=== PATIENT | male | born 1960 | race Two or more races ===

== ENCOUNTER 2016-12-14 11:58 | Day surgery (SDC) | payer BC ==
[~2016-12-14] VITALS: Ht 162.6 cm; Wt 105.0 kg
[2016-12-14] MEDS ORDERED: RAMIPRIL (12:30)
[2016-12-14] MEDS ORDERED: METOPROLOL (12:30)
[2016-12-14] MEDS ORDERED: AMLODIPINE (12:30)
[2016-12-14] MEDS ORDERED: ASPIRIN (12:30)
[2016-12-14] MEDS ORDERED: TRIAMTERENE (12:30)
[2016-12-14] MEDS ORDERED: PROPOFOL 20 ML ONE (14:19)
[2016-12-14 15:13] VITALS: BP 143/79; PULSE 55; RESP 22
--- NOTE | 2016-12-14 15:31 | OPPN ---
Date/Time of Note Date/Time of Note DATE: 12/14/16 TIME: 15:28 Proc Note GI Free Text/Dictation Procedure Date: 12/14/2016 Preoperative Diagnosis: Colorectal cancer screening Postoperative Diagnosis: Poor preparation precludes adequate examination Plan: Reschedule with 2 day prep, emphasize compliance with preparation Procedure Performed: Colonoscopy to splenic flexure Surgeon: Racheal Robles MD Chief Fishery Division: None Second Supervisor Microwave: None Anesthesia/Sedation MAC by anesthesiologist Tourniquet Time: NA Estimated Blood Loss: None Transfusion Required: No Specimens: None Grafts/Implants: None Tubes/Drains: NA Complications: None Pt. Condition Post Procedure: Stable Disposition: Home After informed consent, with the patient/relatives understanding the procedure, its indications and potential risks and complications, including but not limited to: Allergic reaction, bleeding, perforation, infection, and after all pertinent questions were answered to the patient's satisfaction, the patient/ relatives signed the witnessed informed consent. Following this, premedication was administered slowly IV push under careful cardiovascular and respiratory monitoring with pulse OXIMETRY, automatic blood pressure, and monitor technician. Once the sedative effect was achieved, the patient was placed in the left lateral decubitus position, digital rectal examination was performed. The colonoscope was then introduced and advanced under visual control throughout all segments of the colon including: the rectum, sigmoid, descending colon, splenic flexure preparation is extremely poor beyond this point. Careful examination of the mucosa utilizing a limited fashion of the lower gastrointestinal tract both on insertion as well as withdrawal of the instrument disclosed the following findings: PREPARATION QUALITY: Poor, inadequate examination RECTAL EXAM: The anorectal area was visualized examined and digital rectal examination performed with the following findings: No evidence of perirectal disease, no masses. COLONIC MUCOSA: The mucosa of all segments of the colon was carefully examined and showed the following findings: The preparation is extremely poor precluding adequate examination. Attempts at liver edge and advanced beyond the splenic flexure were made but the preparation worsen significantly as we advance instrument. The procedure was therefore terminated and the examination is considered inadequate. The instrument was then withdrawn, the patient tolerated the procedure well and was transferred out of the Endoscopy Suite awake and in good condition to continue recovery under observation. Procedure date: Dec 14, 2016 RACHEAL ROBLES MD Dec 14, 2016 15:31
[2016-12-14 16:00] VITALS: BP 136/91; PULSE 65; RESP 14
[2016-12-14 16:08] VITALS: BP 126/69; PULSE 60; RESP 14
== END 2016-12-14 16:29 | disposition home or self-care (01) ==
LOC: GIL 11:58
PROVIDERS: ATTEND Internal Medicine Gastroenterology
DX: Z12.11 Encounter for screening for malignant neoplasm of colon (principal); I10 Essential (primary) hypertension; E66.01 Morbid (severe) obesity due to excess calories; Z68.39 Body mass index [BMI] 39.0-39.9, adult
CPT/HCPCS: 45378; Z7610

== ENCOUNTER 2017-04-02 11:18 | Day surgery (SDC) | payer BC ==
[~2017-04-02] VITALS: Ht 162.6 cm; Wt 102.2 kg
[~2017-04-02 11:18] MED LIST: AMLODIPINE; ASPIRIN; METOPROLOL; RAMIPRIL; TRIAMTERENE
[2017-04-02 12:55] VITALS: Ht 162.6 cm; Wt 102.2 kg
[2017-04-02 13:33] VITALS: BP 148/89; PULSE 56; RESP 16
[2017-04-02] MEDS ORDERED: PROPOFOL 40 ML ONE (13:52)
[2017-04-02] MEDS ORDERED: LIDOCAINE 2% (SDV) 5 ML INJ ONE (13:52)
--- NOTE | 2017-04-02 15:26 | OPPN ---
Date/Time of Note Date/Time of Note DATE: 04/02/17 TIME: 15:21 Proc Note GI Procedure Date 04/02/17 Indication: screening/surveillance Pre-procedure Diagnosis CRC screening Post-procedure Diagnosis Impression: Fair preparation. 15-20% of the mucosa obscured Normal visualized colonic mucosa. Moderate-sized internal hemorrhoids Plan: Follow up as scheduled] High fiber diet Annual hemoccult stool testing [Screening colonoscopy in 2-3 years] Procedure Performed: Colonoscopy Surgeon RACHEAL SCHROEDER MD See signature line Laundromat Worker none Anesthesia Type: MAC Anesthesiologist: SHINE HER MD Tourniquet Time none EBL none Transfusion required none Biopsy 1: None Grafts/Implants none Tubes/Drains none Complication(s) none Disposition: home Procedure Description After informed consent, with the patient/relatives understanding the procedure, its indications and potential risks and complications, including but not limited to: Allergic reaction, bleeding, perforation, infection, and after all pertinent questions were answered to the patient's satisfaction, the patient/ relatives signed the witnessed informed consent. Following this, premedication was administered slowly IV push under careful cardiovascular and respiratory monitoring with pulse OXIMETRY, automatic blood pressure, and corporate director of pharmacy. Once the sedative effect was achieved, the patient was placed in the left lateral decubitus position, digital rectal examination was performed. The colonoscope was then introduced and advanced under visual control throughout all segments of the colon including: the rectum, sigmoid, descending colon, splenic flexure, transverse colon, hepatic flexure, ascending colon and finally reaching the cecum which was clearly identified by transillumination, finger indentation and the ileocecal valve. Careful examination of the mucosa of the lower gastrointestinal tract both on insertion as well as withdrawal of the instrument disclosed the following findings: PREPARATION QUALITY: , [fair, procedure completed] RECTAL EXAM: The anorectal area was visualized examined and digital rectal examination performed with the following findings: No evidence of perirectal disease, no masses. COLONIC MUCOSA: The mucosa of all segments of the colon was carefully examined and showed the following findings: the examined mucosa appears within normal limits. There is no evidence of inflammatory changes, diverticular formation, polyps or neoplasms, vascular malformation, or any other abnormality. Moderate-sized internal hemorrhoids The instrument was then withdrawn, the patient tolerated the procedure well and was transferred out of the Endoscopy Suite awake and in good condition to continue recovery under observation. Copies To: CC: RACHEAL SCHROEDER MD, MORDO MD Apr 02, 2017 15:26
[2017-04-02 15:30] VITALS: BP 178/101; RESP 20
== END 2017-04-02 15:35 | disposition home or self-care (01) ==
LOC: GIL 11:18
PROVIDERS: ATTEND Internal Medicine Gastroenterology
DX: Z12.11 Encounter for screening for malignant neoplasm of colon (principal); K64.8 Other hemorrhoids; I10 Essential (primary) hypertension
CPT/HCPCS: 45378; Z7610